=== PATIENT | female | born 2005 | race Caucasian/White ===

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

== ENCOUNTER 2024-01-08 15:37 | Emergency (ER) | payer MEDICAID ==
[~2024-01-08] VITALS: Ht 167.6 cm; Wt 50.2 kg
[2024-01-08 15:49] VITALS: BP 123/80; PULSE 70; RESP 18; O2SAT 98
[2024-01-08] MEDS: aspirin 81mg tab.chew PO ONE (16:06)
[2024-01-08 17:07] LABS: BASOPHILS # (AUTO) 0.2 X10'3 (0-0.2); BASOPHILS % (AUTO) 1.9 % (0-1); EOSINOPHILS % (AUTO) 0.4 % (0-6); HEMATOCRIT 36.2 % (35.0-45.0); HEMOGLOBIN 11.9 g/dl (12.0-16.0); LYMPHOCYTES # (AUTO) 2.2 X10'3 (1.1-4.8); LYMPHOCYTES % (AUTO) 21.4 % (21-51); MEAN CORPUSCULAR HEMOGLOBIN 28.3 PG (27.0-31.0); MEAN CORPUSCULAR HGB CONC 32.8 g/dL (33.0-36.5); MEAN CORPUSCULAR VOLUME 86.6 FL (78-98); MEAN PLATELET VOLUME 7.8 FL (7.4-10.4); MONOCYTES # (AUTO) 0.6 X10'3 (0-0.9); MONOCYTES % (AUTO) 5.3 % (2-12); NEUTROPHILS # (AUTO) 7.4 X10'3 (1.8-7.7); PLATELET COUNT 221 X10'3 (140-440); RED BLOOD COUNT 4.18 X10'6 (4.20-5.60); RED CELL DISTRIBUTION WIDTH 13.5 % (11.5-14.5); WHITE BLOOD COUNT 10.4 X10'3 (4.5-11.0)
[2024-01-08 17:27] LABS: ANION GAP 9 (8-16); BLOOD UREA NITROGEN 13 MG/DL (7-18); BUN/CREATININE RATIO 15.7 (10.0-20.0); CHLORIDE 108 MMOL/L (99-107); CREATININE 0.83 MG/DL (0.40-0.90); GLUCOSE 90 MG/DL (70-104); MAGNESIUM 2.1 MG/DL (1.5-2.4); POTASSIUM 3.8 MMOL/L (3.5-5.1); PRO BRAIN NATRIURETIC PEPTIDE 127 PG/ML (0-125); SODIUM 143 MMOL/L (135-145); TOTAL CARBON DIOXIDE 26.4 MMOL/L (24-32); eCRCL 86 ML/MIN; eGFR 89 ML/MIN
[2024-01-08 17:48] VITALS: TEMP 98
== END 2024-01-08 17:53 | disposition home or self-care (01) ==
LOC: ER 15:37
DX: S00.83XA Contusion of other part of head, initial encounter (principal); R55 Syncope and collapse; W22.8XXA Striking against or struck by other objects, initial encounter; Y93.89 Activity, other specified; Y92.89 Other specified places as the place of occurrence of the external cause; Y99.8 Other external cause status
CPT/HCPCS: 36415; 71045; 80048; 83735; 83880; 84484; 85025; 93005; 99285

== ENCOUNTER 2025-02-26 14:46 | Outpatient (CLI) | payer MEDICAID ==
[2025-02-26] MEDS ORDERED: GADOTERATE MEGLUMINE 7.5 MMOL/15 ML VIAL IV ONE (20:43)
--- NOTE | 2025-02-27 05:59 | RADIOLOGY REPORT ---
Exam: MR MRI PELVIS History: OVARIAN MASS, RIGHT Comparison: Ultrasound dated 12/25/2021 Technique: Multisequence multiplanar MRI images of the pelvis were performed. Imaging was obtained without and with intravenous contrast administration. Findings: Bladder: Unremarkable. Visualized bowel: Visualized portion of the bowel is grossly unremarkable without evidence for obstru ction. Pelvic organs: Uterus measures 6.4 x 4.9 x 5.8 cm. Endometrium measures 1.6 cm and is within normal l imits for patient of this age. Right ovary measures 2.4 cm. Left ovary measures 5.1 cm. There are 2 adjacent left ovarian cysts measuring 4.0 cm and 2.0 cm, respectively. Lymphadenopathy: No evidence for pelvic lymphadenopathy. Vasculature: There is normal enhancement of the pelvic vasculature. Ascites: Absent. Musculoskeletal: The bone marrow signal is preserved. IMPRESSION: No acute or suspicious finding. 4.0 cm simple left ovarian cyst. 2.0 cm left corpus luteal cyst or simple ovarian cyst.
== END 2025-02-26 23:59 | disposition home or self-care (01) ==
LOC: MRI 14:46
PROVIDERS: ATTEND Family Medicine
DX: N83.292 Other ovarian cyst, left side (principal); N83.8 Other noninflammatory disorders of ovary, fallopian tube and broad ligament
CPT/HCPCS: 72197; A9575

== ENCOUNTER 2025-04-03 09:24 | Emergency (ER) | payer MEDICAID ==
[~2025-04-03] VITALS: Ht 167.6 cm; Wt 51.7 kg
[2025-04-03 09:53] LABS: MEAN PLATELET VOLUME 7.6 FL (7.4-10.4); RED CELL DISTRIBUTION WIDTH 13.5 % (11.5-14.5)
[2025-04-03 09:57] LABS: URINE HCG POSITIVE (NEG)
[2025-04-03 09:59] LABS: LEUKOCYTE ESTERASE ,URINE NEGATIVE (Neg); OCCULT BLOOD,URINE TRACE-INTACT (Neg)
[2025-04-03 10:04] LABS: UA COLLECTION TYPE CLN CATCH MIDSTREAM
[2025-04-03 10:05] LABS: NITRITES, URINE NEGATIVE (Neg)
[2025-04-03 10:15] LABS: SQUAMOUS EPITHELIAL CELL,UR MANY /LPF (FEW)
[2025-04-03 10:15] LABS: CREATININE 0.61 MG/DL (0.40-0.90); TOTAL CARBON DIOXIDE 20.0 MMOL/L (24-32); eCRCL 119 ML/MIN; eGFR > 90 ML/MIN
[2025-04-03 10:16] LABS: CAL OXALATE CRYSTALS 4+ /HPF (NEGATIVE)
[2025-04-03 10:17] LABS: COARSE GRANULAR CAST 0-3 /LPF (NEGATIVE)
[2025-04-03 10:18] VITALS: TEMP 98.4
--- NOTE | 2025-04-03 10:27 | Physician Documentation ---
History of Present Illness Chief Complaint: Abdominal Pain w/vomiting Stated Complaint: ABD PAIN VOMMITING Time Seen by MD: 09:38 Primary Medical Doctor: Unknown HPI Patient is a 20-year-old female that presents to the emergency department for evaluation of nausea, vomiting, diarrhea x2 hours. She reports that she is 10 weeks . Patient reports that she had had intermittent episodes of nausea during this but this is the worst. Patient also reports diarrhea and left lower quadrant pain at this time. Patient reports that she is trying to wean off of marijuana and has not smoked marijuana in the last few days. Medication Reconciliation Allergies: Coded Allergies: No Known Allergies (Unverified , 01/08/24) Scheduled Prazosin Hcl (Minipress), 1 MG PO HS, (Reported) Sertraline Hcl* (Zoloft*), 1 TAB PO DAILY, (Reported) Past Medical History Past Medical History: No Pertinent History, Depression Past Surgical History: no surgical history Alcohol Use: None Drug Use: none Lives In: Home Review of Systems ROS As stated above in the HPI, otherwise all systems are reviewed and negative. Physical Exam Vital Signs: Temperature: 98.4, Source: Oral, Heart Rate: 68, Respiratory Rate: 16, BP: 118/77, Pulse Oximetry: 100, Weight: 51.700 Oxygen Flow Rate: 0 Physical Exam VITALS: Reviewed and as above. GENERAL: Alert, no apparent distress. HEENT: Normocephalic, atraumatic, PERRL, EOMI, dry mucosa, no erythema RESPIRATORY: Lungs clear, normal breath sounds, no respiratory distress. CHEST: No accessory muscle use, no retractions CV: Regular rate, rhythm, no edema, no murmur, No: JVD GI: Soft, pain with palpation to the epigastric region, no rebound, guarding, or rigidity, BACK: No CVA tenderness, or swelling MUSCULOSKELETAL No deformities, no edema SKIN: Warm and dry, no rash NEURO: Oriented x4, No motor or sensory deficit PSYCH: Normal mood and affect, no agitation Progress Results/Orders Results/Orders Orders - PATRICIO GARCIA Ultrasound Ob (04/03/25 ) Completed Orders - PATRICIO GARCIA Promethazine Tablet (Phenergan Tablet) (04/03/25 09:50) Normal Saline 1000ml (0.9% Sodium Chlori (04/03/25 10:05) Promethazine Tablet (Phenergan Tablet) (04/03/25 10:05) Vital Signs 04/03/25 09:27 Temp 98.4 Pulse 68 Resp 16 B/P (MAP) 118/77 Pulse Ox 100 O2 Flow Rate 0 Laboratory Tests Test 04/03/25 09:32 04/03/25 09:46 Urine Specimen Description Cln catch midstream Urine Color Yellow Urine Clarity Slightly cloudy Urine pH 6.0 Urine Specific [place] >=1.030 Urine Protein 100 H Urine Glucose (UA) Negative Urine Ketones >=80 Urine Occult Blood Trace-intact Urine Nitrite Negative Urine Bilirubin Small Urine Urobilinogen 0.2 Urine Leukocyte Esterase Negative Urine RBC 0-2 Urine WBC 0-4 Urine Squamous Epithelial Cells Many Urine Transitional Epithelial Cells Few Urine Calcium Oxalate Crystals 4+ Urine Bacteria 1+ Urine Coarse Granular Casts 0-3 Urine Culture Indicated Not ind Volume Urine Centrifuged 10 ml Urine HCG, Qualitative Positive Urine Comment White Blood Count 17.1 H Red Blood Count 4.74 Hemoglobin 13.5 Hematocrit 39.9 Mean Corpuscular Volume 84.1 Mean Corpuscular Hemoglobin 28.5 Mean Corpuscular Hemoglobin Concent 33.9 Red Cell Distribution Width 13.5 Platelet Count 296 Mean Platelet Volume 7.6 Neutrophils (%) (Auto) 82.4 H Lymphocytes (%) (Auto) 12.1 L Monocytes (%) (Auto) 5.2 Eosinophils (%) (Auto) 0.1 Basophils (%) (Auto) 0.2 Neutrophils # (Auto) 14.1 H Lymphocytes # (Auto) 2.1 Monocytes # (Auto) 0.9 Eosinophils # (Auto) 0.0 Basophils # (Auto) 0.0 CBC Comment Sodium Level 136 Potassium Level 3.1 L Chloride Level 103 Carbon Dioxide Level 20.0 L Anion Gap 13 Blood Urea Nitrogen 7 Creatinine 0.61 Estimated GFR/1.73 m2 > 90 BUN/Creatinine Ratio 11.5 Glucose Level 133 H Calcium Level 9.8 Total Bilirubin 0.5 Aspartate Amino Transf (AST/SGOT) 16 Alanine Aminotransferase (ALT/SGPT) 25 Alkaline Phosphatase 60 Total Protein 7.6 Albumin 4.3 Globulin 3.3 Albumin/Globulin Ratio 1.3 Lipase 24 Chemistry Comments Medical Decision Making Findings 1030: Discussed this case with the attending on of Dr. Lynch, Dr. Lynch feels like conservative management is best for this patient. Rehydrating the patient repleting her potassium as she has a potassium of 3.1 are priorities at this time the patient has a history of marijuana use and episodes of vomiting. Also ordered an abdominal ultrasound for the patient to rule out any obvious sources of infection. Recent labs demonstrate an elevated white blood cell count, this was also discussed with Dr. Lynch, she feels like this may be due to an inflammatory response a and the hyperemesis it the patient is experiencing. 1330: Patient reports improvement in nausea and vomiting. 1400: Ultrasound completed, radiologist's interpretation. Patient was hydrated nausea and vomiting were managed with antiemetics, laboratory and ultrasound diagnostics ruled out concern for acute abdomen at this time. No concerns his noted on ultrasound. Patient will continue to hydrate at home and eat a soft diet crackers and clear liquids, he will follow up with her primary care provider. Patient will return to the emergency department if she has any worsening of her current symptoms or any additional concerning symptoms present. Differential Dx:Considerations: Include: AAA, -Complete, -Incomplete, -Inevitable, -Missed, -Threatened, Abruptio placentae, Angina/PR, Aortic dissection, Appendicitis, Bowel obstruction, Cholangitis, Cholelithasis, Constipation, Diverticular disease, Esophageal rupture, Esophagitis, Gastritis/PUD, Gastroenteritis, GI hemorrhage, Hernia, Hepatitis, Inflammatory BD, Ischemic bowel, Ovarian cyst/torsion, Pancreatitis, PID, Porphyria, Trauma, intraabdominal, Urinary obstruction, Urinary tract infection, Urolithiasis, Other Departure Disposition: 01 HOME / SELF CARE / HOMELESS Impression: Primary Impression: Vomiting Additional Impression: Hypokalemia Condition: Stable Discharge Instructions: Dehydration, Adult, Abdominal Pain During , Viral Gastroenteritis, Adult, [id number] Additional Instructions: Saw you for evaluation of nausea vomiting and diarrhea x2 to 3 hours. You were hydrated with IV fluids and given antiemetics. Laboratory and ultrasound diagnostics to confirmed that there are no fever the only obvious sources of infection or concern at this time. Please continue to hydrate herself at home as able, crackers and clear liquids next 24 hours or recommended. Please follow-up with your primary care provider and your OBGYN. Ratio please return to the emergency department if you have any worsening of symptoms or any additional concerning symptoms present Referrals: NO PRIMARY CARE PROVIDER (PCP) Education Educated: Patient Educated regarding: treatment, need for follow up PATRICIO GARCIA DIRECTOR OF EDUCATION AND TRAINING Apr 03, 2025 10:27
[2025-04-03] MEDS: normal saline 1000ML IV soln IVB ONE ×2 (10:30→12:34)
[2025-04-03] MEDS: POTASSIUM CHLORIDE 20 MEQ/15 ML oral solution PO SCH (12:20)
--- NOTE | 2025-04-03 14:47 | RADIOLOGY REPORT ---
OB ULTRASOUND <14 WEEKS: HISTORY: 10 weeks TECHNIQUE: Multiple real-time grayscale sonographic images of the pelvis with duplex Doppler color f low, spectral and M-mode analysis. TRANSDUCERS: TA FINDINGS: The uterus measures 8 x 7 x 7 cm The cervix was not. Right ovary measures 4 x 2 x 3 cm with normal Doppler color flow Left ovary measures 3 x 2 x 3 cm with normal Doppler color flow IUP single live fetus at 9 weeks 3 days average ultrasound age based on mean crown-rump length of 2. 6 cm and gestational sac size of 3.5 cm IMPRESSION: IUP single live fetus 9 weeks AUA corresponding to an JESENIA of 3-5-26. No acute abnormality detected.
[2025-04-03 15:04] VITALS: BP 107/55; PULSE 60; RESP 14; O2SAT 100
--- NOTE | 2025-04-03 18:49 | RADIOLOGY REPORT ---
INDICATION: abdominal pain, vomiting TECHNIQUE: Multiple real-time sonographic images were obtained of the right upper quadrant. COMPARISON: US US OB on DOS: 04/03/25, MR MRI PELVIS on DOS: 02/26/25, US OB on DOS: 12/25/21 FINDINGS: The liver demonstrates homogeneous echotexture without focal mass lesions. The liver measu res 14.8 cm. There is no intrahepatic or extrahepatic ductal dilatation. The common duct measures 0.2 cm. Gallbladder sludge is present. The gallbladder wall measures 0.2 cm and is within normal limits. The right kidney measures 11.7 cm. The right kidney is normal in contour, size, and shape. The echoge nicity is normal. There is no hydronephrosis. The pancreas is not well visualized due to overlying bowel gas. IMPRESSION: Small volume gallbladder sludge is present.
== END 2025-04-03 15:04 | disposition home or self-care (01) ==
LOC: ER 09:24
DX: O21.9 Vomiting of pregnancy, unspecified (principal); E87.6 Hypokalemia; Z3A.10 10 weeks gestation of pregnancy; Z79.899 Other long term (current) drug therapy
CPT/HCPCS: 36415; 76700; 76801; 80053; 81001; 81025; 83690; 85025; 96360; 96361; 99285; J7030; Q0169